=== PATIENT | female | born 1980 | race Caucasian/White ===

== ENCOUNTER 2018-01-27 16:57 | Emergency (ER) | payer OTHER ==
[~2018-01-27] VITALS: Ht 162.6 cm; Wt 47.6 kg
[2018-01-27] MEDS ORDERED: DOLOGESIC 500-1 EACH PO (22:56)
== END 2018-01-27 22:59 | disposition home or self-care (01) ==
LOC: ER 16:57
DX: S50.11XA Contusion of right forearm, initial encounter (principal); W18.39XA Other fall on same level, initial encounter; Y93.89 Activity, other specified; Y92.091 Bathroom in other non-institutional residence as the place of occurrence of the external cause; Y99.8 Other external cause status

== ENCOUNTER 2018-10-08 10:08 | Outpatient (CLI) | payer OTHER ==
[~2018-10-08 10:08] MED LIST: DOLOGESIC 500-1 EACH PO
== END 2018-10-08 10:25 | disposition home or self-care (01) ==
LOC: RAD 501 10:08
DX: S52.134A Nondisplaced fracture of neck of right radius, initial encounter for closed fracture (principal)

== ENCOUNTER 2021-01-01 16:39 | Inpatient (IN) | payer OTHER ==
[~2021-01-01] VITALS: Ht 162.6 cm; Wt 52.2 kg
[2021-01-01] MEDS ORDERED: XELJANZ5 MG (17:12)
--- NOTE | 2021-01-01 17:14 | NUR ---
SE RECIBE PTE ALERTA Y ORIENTADA X 3 ESFERAS LA CUAL INDICA QUE PRESENTA DOLOR ABDOMINAL EN LADO DERECHO DESDE ALYCIA. REFIERE ADEMAS SENTIR NAUSEAS.
--- NOTE | 2021-01-01 18:24 | NUR ---
PTE ALERTA,ESTABLE Y ORIENTADA.SE EDUCA SOBRE EL TRATAMIENTO QUE SE LE REALIZARA EN EL HOSPITAL Y ESTA REFIERE ENTENDER.SE LE CONCHITA MUESTRAS DE CANELO BAO ORDEN MEDICA.
== END 2021-01-04 19:11 | disposition home or self-care (01) | DRG 440 ==
LOC: ER 16:39 → MEDJ 01-02 01:14
PROVIDERS: ADMIT Internal Medicine; ATTEND Internal Medicine
PROC: BW40ZZZ Ultrasonography of Abdomen (ICD-10-PCS; principal; 2021-01-01)
DX: K85.30 Drug induced acute pancreatitis without necrosis or infection (principal); L40.50 Arthropathic psoriasis, unspecified; E80.4 Gilbert syndrome; Z20.822 Contact with and (suspected) exposure to COVID-19